=== PATIENT | male | born 1995 | race Asian ===

== ENCOUNTER 2024-08-04 12:34 | Emergency (ER) | payer OTHER, SELFPAY ==
[2024-08-04 12:37] VITALS: BP 180/110
[2024-08-04 13:07] LABS: % Basophils 0.2 % (0-2); % Immature Granulocytes 0.3 % (0-0.5); % Lymphocytes 20.4 % (20.5-51.1); % Monocytes 3.4 % (1.7-9.3); % Neutrophils 75.7 % (42.2-75.2); Absolute Lymphocytes 2.4 10^3/uL (1.2-3.4); Absolute Monocytes 0.4 10^3/uL (0.1-0.6); Absolute Neutrophils 8.9 10^3/uL (1.4-6.5); Hemoglobin 16.6 g/dL (13.0-18.0); Mean Corp Hgb Conc. 34.6 g/dL (33.0-37.0); Mean Corpuscular Hgb 33.9 pg (27.0-31.0); Mean Platelet Volume 9.3 fL (7.4-10.4); Nucleated Red Blood Cells % 0 % (-); Platelet Count 272 10^3/uL (130-400); Red Cell Dist. Width 11.3 % (11.5-14.5); White Blood Cell Count 11.7 10^3/uL (4.8-10.8)
[2024-08-04 13:26] LABS: ALT (SGPT) 27 U/L (0-50); AST (SGOT) 25 U/L (17-59); Albumin 4.5 g/dl (3.5-5.0); Alkaline Phosphatase 70 U/L (38-126); Blood Urea Nitrogen 18 mg/dl (9-20); Calcium 9.8 mg/dl (8.4-10.2); Carbon Dioxide 32 mmol/L (22-30); Chloride 100 mmol/L (98-107); Glucose 126 mg/dl (70-99); Potassium 4.3 mmol/L (3.5-5.1); Sodium 140 mmol/L (135-145); Total Protein 7.6 g/dl (6.3-8.2); eGFR > 60.00
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
[2024-08-04] MEDS: ATIVAN 1 MG IV (14:44)
[2024-08-04 14:48] VITALS: BP 149/91; BMI 22.2
[2024-08-04 15:00] VITALS: BP 141/89
[2024-08-04 16:00] VITALS: BP 137/97
== END 2024-08-04 17:00 | disposition home or self-care (01) ==
LOC: EMR 12:34
PROVIDERS: Emergency Medicine; EMERGENCY PHYSICIAN Emergency Medicine
DX: F41.9 Anxiety disorder, unspecified (principal); F13.239 Sedative, hypnotic or anxiolytic dependence with withdrawal, unspecified; R56.9 Unspecified convulsions; T42.4X5A Adverse effect of benzodiazepines, initial encounter
CPT/HCPCS: 96374; 99284; 80053; 85025; 93005